=== PATIENT | female | born 1940 | race Caucasian/White ===

== ENCOUNTER 2024-02-10 12:47 | Outpatient (CLI) | payer MEDICARE | END 2024-02-10 12:48 | disposition home or self-care (01) | LOC: CSHMAMMO 12:47 | PROVIDERS: ATTEND Physician Assistant | DX: M81.0 Age-related osteoporosis without current pathological fracture (principal); N60.19 Diffuse cystic mastopathy of unspecified breast; M85.88 Other specified disorders of bone density and structure, other site | CPT/HCPCS: 77080 ==